=== PATIENT | male | born 1960 | race African-American/Black ===

== ENCOUNTER 2020-06-16 19:31 | Emergency (ER) | payer MEDICAID ==
[~2020-06-16] VITALS: Ht 185.4 cm; Wt 94.0 kg
[2020-06-16] MEDS ORDERED: MORPHINE SULFATE 4 MG/ML CPJ (NOT FOR IM USE) IV STA (20:48)
[2020-06-16 21:31] LABS: BASOPHILS % 0.4 % (0.0-2.0); EOSINOPHILS % 1.1 % (0.0-5.0); HEMATOCRIT. 43.6 % (42.0-52.0); HEMOGLOBIN. 14.1 g/dL (14.0-18.0); MEAN CORPUSCULAR HEMOGLOBIN 28.5 pg (28.0-32.0); MEAN PLATELET VOLUME 9.7 fl (7.4-10.4); NEUTROPHILS % 76.5 % (40.0-76.0); PLATELET 204 x1000/uL (130-400); RED BLOOD CELL COUNT 4.96 mill/uL (4.7-6.1); RED CELL DISTRIBUTION WIDTH 14.3 % (11.6-14.6)
[2020-06-16 21:35] LABS: CHLORIDE 108 mEq/L (98-107)
[2020-06-16 21:39] LABS: PROTHROMBIN TIME 10.7 sec (9.6-11.0)
[2020-06-16] MEDS ORDERED: IOHEXOL-300 100 ML BOTTLE ONE (23:09)
[2020-06-17] MEDS ORDERED: MORPHINE SULFATE 4 MG/ML CPJ (NOT FOR IM USE) IV ONE (00:45)
[2020-06-17 00:52] LABS: BASOPHILS % 0.4 % (0.0-2.0); EOSINOPHILS % 1.9 % (0.0-5.0); HEMATOCRIT. 40.6 % (42.0-52.0); HEMOGLOBIN. 13.5 g/dL (14.0-18.0); LYMPHOCYTES % 24.3 % (20.0-50.0); MEAN CORPUSCULAR VOLUME 87.2 fL (80.0-94.0); MEAN PLATELET VOLUME 9.2 fl (7.4-10.4); MONOCYTES % 6.5 % (2.0-8.0); NEUTROPHILS % 66.9 % (40.0-76.0); PLATELET 214 x1000/uL (130-400); RED BLOOD CELL COUNT 4.66 mill/uL (4.7-6.1); RED CELL DISTRIBUTION WIDTH 14.1 % (11.6-14.6)
[2020-06-17 01:47] LABS: CLARITY URINE CLEAR (CLEAR); COLOR URINE YELLOW (YELLOW); KETONES URINE 2+ (NEGATIVE); LEUKOCYTE ESTERASE URINE NEGATIVE (NEGATIVE); NITRITE URINE NEGATIVE (NEGATIVE); OCCULT BLOOD URINE NEGATIVE (NEGATIVE); PH URINE 5.5 (4.5-8.0); PROTEIN URINE NEGATIVE (NEGATIVE); SPECIFIC GRAVITY URINE 1.057 (1.005-1.030); UROBILINOGEN URINE 0.2 E.U./dL (0.2-1.0)
[2020-06-17 04:15] VITALS: BP 132/78
== END 2020-06-17 05:18 | disposition short-term general hospital (02) ==
LOC: ER 19:31
DX: S39.81XA Other specified injuries of abdomen, initial encounter (principal); M62.81 Muscle weakness (generalized); R94.8 Abnormal results of function studies of other organs and systems; I10 Essential (primary) hypertension; M79.672 Pain in left foot; M79.671 Pain in right foot; Z86.73 Personal history of transient ischemic attack (TIA), and cerebral infarction without residual deficits; Z98.890 Other specified postprocedural states; W17.89XA Other fall from one level to another, initial encounter; Y93.89 Activity, other specified; Y92.018 Other place in single-family (private) house as the place of occurrence of the external cause
CPT/HCPCS: 36415; 70450; 71260; 72125; 73552; 73560; 73590; 73630; 74177; 80053; 81003; 83690; 85025; 85610; 86850; 86900; 86901; 96374; 96376; 99285; J2270; Q9967

== ENCOUNTER 2021-09-09 12:00 | Emergency (ER) | payer SELFPAY ==
[~2021-09-09] VITALS: Ht 182.9 cm; Wt 97.0 kg
[2021-09-09 12:07] VITALS: BP 109/85
== END 2021-09-09 15:22 | disposition left against medical advice (07) ==
LOC: ER 12:00
DX: Z53.21 Procedure and treatment not carried out due to patient leaving prior to being seen by health care provider (principal)
CPT/HCPCS: 93005; 99283

== ENCOUNTER 2023-06-06 22:01 | Inpatient (IN) | payer MEDICAID, OTHER ==
[~2023-06-06] VITALS: Ht 182.9 cm; Wt 102.1 kg
[2023-06-06 22:27] VITALS: O2SAT 98
[2023-06-06] MEDS ORDERED: FUROSEMIDE 40MG/4ML VIAL IVP ONE (23:00)
[2023-06-06 23:24] LABS: BASOPHILS % 1.4 % (0.0-2.0); EOSINOPHILS % 0.6 % (0.0-5.0); HEMATOCRIT. 32.7 % (42.0-52.0); HEMOGLOBIN. 10.5 g/dL (14.0-18.0); LYMPHOCYTES % 20.3 % (20.0-50.0); MEAN CORPUSCULAR HEMOGLOBIN 26.9 pg (28.0-32.0); MEAN CORPUSCULAR HGB CONC 32.1 g/dL (31.0-37.0); MEAN CORPUSCULAR VOLUME 83.8 fL (80.0-94.0); MEAN PLATELET VOLUME 9.9 fl (7.4-10.4); MONOCYTES % 6.6 % (2.0-8.0); NEUTROPHILS % 71.1 % (40.0-76.0); PLATELET 198 x1000/uL (130-400); RED CELL DISTRIBUTION WIDTH 25.7 % (11.6-14.6); WHITE BLOOD COUNT 5.5 x1000/uL (4.5-11.0)
[2023-06-06 23:35] LABS: CHLORIDE 98 mEq/L (98-107); INDEX HEMOLYSI 3 (1-3); INDEX ICTERIC 2 (1-4); INDEX LIPEMIC 1 (1-3); SODIUM 130 mEq/L (136-145)
[2023-06-06 23:43] LABS: ALANINE AMINOTRANSFERASE 31 IU/L (13-61); ASPARTATE AMINOTRANSFERASE 24 IU/L (15-37); BILIRUBIN TOTAL 3.9 mg/dL (0.1-1.0); CALCIUM 8.3 mg/dL (8.5-10.1); CARBON DIOXIDE 21 mEq/L (21-32); CREATININE 1.5 mg/dL (0.6-1.3); ETHANOL BLOOD < 10 mg/dL (<10); GLUCOSE 118 mg/dL (70-105); NT PRO B-TYPE NATRIURETIC PEP 24768 pg/mL (5-125); PROTEIN TOTAL 7.3 g/dL (6.0-8.3); TROPONIN I HIGH SENSITIVITY 73 ng/L (<78); UREA NITROGEN BLOOD 55 mg/dL (7-21)
[2023-06-06 23:45] LABS: PHOSPHORUS 4.3 mg/dL (2.5-4.9)
[2023-06-06 23:52] LABS: ADD RBC MORPHOLOGY YES; DIFFERENTIAL COMMENT 1
[2023-06-07 00:25] LABS: ANISOCYTOSIS 1+; PLATELET ESTIMATE NORMAL
[2023-06-07 06:01] LABS: *AMPHETAMINES SCREEN URINE NEGATIVE (NEGATIVE); *BARBITURATES SCREEN URINE NEGATIVE (NEGATIVE); *BENZODIAZEPINES SCREEN URINE NEGATIVE (NEGATIVE); *COCAINE SCREEN URINE NEGATIVE (NEGATIVE); CANNABINOID URINE SCREEN PRESUMTIVE POSITIVE (NEGATIVE); ECSTASY MDMA SCREEN URINE NEGATIVE (NEGATIVE); OPIATES URINE SCREEN NEGATIVE (NEGATIVE); PHENCYCLIDINE URINE SCREEN NEGATIVE (NEGATIVE)
[2023-06-07] MEDS ORDERED: FAMOTIDINE 20MG TABLET PO ONE (09:00)
[2023-06-07 09:30] VITALS: BP 88/65; PULSE 78; RESP 20; TEMP 97.6
[2023-06-07] MEDS ORDERED: ACETAMINOPHEN 325MG TABLET PO PRN (10:30)
[2023-06-07] MEDS ORDERED: ONDANSETRON HCL 4MG/2ML INJ IV PRN (10:30)
[2023-06-07 12:00] VITALS: BP 91/71; PULSE 78; RESP 18; TEMP 97
[2023-06-07] MEDS ORDERED: IPRATROPIUM/ALBUTEROL 0.5-3(2.5)MG/3ML NEB HHN PRN (12:45)
[2023-06-07] MEDS ORDERED: METOLAZONE 2.5MG TABLET PO NR (12:45)
[2023-06-07] MEDS ORDERED: MAGNESIUM/ALUMINUM HYDROXIDE/SIMETHICONE 30ML UDC PO PRN (14:15)
[2023-06-07] MEDS ORDERED: ENOXAPARIN 40MG/0.4ML SYR SUBCUT SCH (15:00)
[2023-06-07] MEDS ORDERED: BISMUTH SUBSALICYLATE 262 MG/15 ML-120ML BOTTLE PO NR (15:00)
[2023-06-07 16:00] VITALS: BP 110/75; PULSE 78; RESP 18; TEMP 97.1
[2023-06-07] MEDS: FUROSEMIDE 40MG/4ML VIAL IVP SCH (17:27)
[2023-06-07 20:00] VITALS: BP 91/71; PULSE 81; RESP 20; TEMP 97.6
[2023-06-07] MEDS ORDERED: ZOLPIDEM TARTRATE 5MG TABLET PO PRN (21:00)
[2023-06-08 00:16] VITALS: BP 97/73; PULSE 83; RESP 19; TEMP 97.8
[2023-06-08] MEDS: IPRATROPIUM/ALBUTEROL 0.5-3(2.5)MG/3ML NEB HHN SCH ×2 (02:25→08:38)
[2023-06-08] MEDS: BUDESONIDE 0.5MG/2ML NEB HHN SCH ×2 (02:25→08:38)
[2023-06-08 02:26] VITALS: PULSE 82; RESP 24
[2023-06-08 04:00] VITALS: BP 92/68; PULSE 80; RESP 19; TEMP 97.4
[2023-06-08 08:00] VITALS: BP 108/73; PULSE 75; RESP 20; TEMP 98.6
[2023-06-08 08:38] VITALS: PULSE 83; RESP 22
[2023-06-08] MEDS ORDERED: METOPROLOL SUCCINATE 50MG ER TABLET PO NR (09:35)
[2023-06-08] MEDS: FUROSEMIDE 40MG/4ML VIAL IVP SCH (09:51)
[2023-06-08 09:56] VITALS: PULSE 83
[2023-06-08] MEDS ORDERED: ENOXAPARIN 30MG/0.3ML SYR SUBCUT SCH (17:00)
[2023-06-08] MEDS ORDERED: FAMOTIDINE 20MG TABLET PO SCH (21:00)
== END 2023-06-08 10:55 | disposition left against medical advice (07) | DRG 194 ==
LOC: ER 22:08 → 7WST 06-07 05:02 → EDBEDREQTM 06-07 05:05 → EDBEDREQ 06-07 05:05
PROVIDERS: ADMIT Internal Medicine; ATTEND Internal Medicine
DX: I11.0 Hypertensive heart disease with heart failure (principal); J96.00 Acute respiratory failure, unspecified whether with hypoxia or hypercapnia; N17.0 Acute kidney failure with tubular necrosis; E44.0 Moderate protein-calorie malnutrition; E87.1 Hypo-osmolality and hyponatremia; E11.9 Type 2 diabetes mellitus without complications; D64.9 Anemia, unspecified; I50.23 Acute on chronic systolic (congestive) heart failure; I42.9 Cardiomyopathy, unspecified; Z53.29 Procedure and treatment not carried out because of patient's decision for other reasons; J44.9 Chronic obstructive pulmonary disease, unspecified; I49.3 Ventricular premature depolarization; I25.10 Atherosclerotic heart disease of native coronary artery without angina pectoris; F17.210 Nicotine dependence, cigarettes, uncomplicated; Z68.30 Body mass index [BMI] 30.0-30.9, adult; I25.2 Old myocardial infarction; Z95.5 Presence of coronary angioplasty implant and graft; Z95.810 Presence of automatic (implantable) cardiac defibrillator; Z59.02 Unsheltered homelessness; Z91.148 Patient's other noncompliance with medication regimen for other reason
CPT/HCPCS: 36415; 71045; 74018; 80053; 80305; 80320; 83735; 83880; 84100; 84484; 85025; 93005; 93306; 93970; 94640; 99285; J1650; J1940; J7626; G0480